=== PATIENT | male | born 1945 | race Caucasian/White ===

== ENCOUNTER 2018-06-30 10:59 | Inpatient (IN) | payer MEDICARE, OTHER ==
[~2018-06-30] VITALS: Ht 167.6 cm; Wt 82.1 kg
[~2018-06-30 10:59] MED LIST: AMLO5TAB9 PO; AMOX500C2 PO; ASPI-605 PO; BENA40TA8 PO; CLAR500T PO; METF-442 PO; OMEP20CA10 PO
--- NOTE | 2018-06-30 11:22 | NUR ---
C/O LLQ ABDOMINAL PAIN + NAUSEA X 3 DAYS. PAIN IS SHARP, PROVOKED BY MOVEMENT, AND 6/10. DENIES CHANGES IN BATHROOM HABITS. NO ACUTE DISTRESS NOTED. AT BEDSIDE. READY FOR EVAL.
[2018-06-30] MEDS ORDERED: ONDANSETRON HCL/PF 4 MG/2 ML VIAL ONE (11:36)
[2018-06-30] MEDS ORDERED: MORPHINE SULFATE INJ 4 MG/ML DISP.SYRIN ONE ×2 (11:36→13:53)
[2018-06-30 11:42] LABS: APPEARANCE,URINE Slightly Cloudy (CLEAR); BILIRUBIN,URINE Negative (NEGATIVE); BLOOD, URINE Negative Ery/uL (NEGATIVE); KETONES,URINE Negative (NEGATIVE); LEUKOCYTE ESTERASE ,URINE Negative (NEGATIVE); NITRITE, URINE Negative (NEGATIVE); PROTEIN,URINE Negative (NEGATIVE); UGLUCOSE 100 MG/DL mg/dL (NEGATIVE)
[2018-06-30 11:50] LABS: BASOPHILS # (AUTO) 0.1 /CMM (0.0-0.2); BASOPHILS % (AUTO) 0.9 % (0.0-2.0); HEMATOCRIT 44 % (39-51); HEMOGLOBIN 14.9 g/dL (13.5-17.5); MEAN CORPUSCULAR HGB CONC 34 g/dl (31.0-36.0); MEAN CORPUSCULAR VOLUME 94 fL (80-96); MONOCYTES # (AUTO) 1.2 /CMM (0.1-1.30); MONOCYTES % (AUTO) 8.5 % (2.0-12.0); NEUTROPHILS % (AUTO) 75.6 % (43.0-81.0); PLATELET COUNT (AUTO) 192 /CMM (150-450); RED BLOOD CELL COUNT(AUTO) 4.64 MIL/uL (4.5-6.0); WHITE BLOOD COUNT (AUTO) 14.6 K/uL (4.3-11.0)
[2018-06-30 11:55] LABS: COLOR,URINE Dark Yellow (YELLOW)
[2018-06-30 11:58] LABS: CALCIUM, SERUM 10.2 mg/dL (8.5-10.1); CARBON DIOXIDE 28 mmol/L (21-32); CHLORIDE 100 mmol/L (98-107); CREATININE 1.2 mg/dL (0.6-1.3); GLUCOSE 185 mg/dL (74-106); POTASSIUM 4.4 mmol/L (3.5-5.1); SODIUM SERUM 138 mmol/L (136-145); UREA NITROGEN, BLOOD 13 mg/dL (7-18)
[2018-06-30] MEDS ORDERED: IV NS 0.9% 1,000 ML BAG IV ONE ×2 (12:00→14:00)
[2018-06-30] MEDS ORDERED: ONDANSETRON HCL/PF 4 MG/2 ML VIAL IVP ONE (12:00)
[2018-06-30] MEDS ORDERED: MORPHINE SULFATE INJ 2 MG/ML DISP.SYRIN IV ONE ×2 (12:00→14:00)
[2018-06-30 12:01] LABS: BACTERIA,URINE None seen /HPF (None Seen); RBC,URINE 0-3 /HPF (0-2); SQUAMOUS EPITHELIAL CELL,UR Few /HPF (None Seen); WBC,URINE 0-1 /HPF (0-3)
[2018-06-30 12:04] LABS: ALANINE AMINOTRANSFERASE 24 U/L (12-78); ALBUMIN 3.7 g/dL (3.4-5.0); ALKALINE PHOSPHATASE 54 U/L (46-116); ASPARTATE AMINOTRANSFERASE 13 U/L (15-37); BILIRUBIN,DIRECT 0.1 mg/dL (0.0-0.2); BILIRUBIN,TOTAL 0.6 mg/dL (0.2-1.0); LIPASE 188 U/L (73-393); TOTAL PROTEIN, SERUM 7.9 g/dL (6.4-8.2)
[2018-06-30] MEDS ORDERED: PIPERACILLIN /TAZOBACTAM 3.375 G in IV D5W 50 ML IV ONE (12:30)
[2018-06-30] MEDS ORDERED: PIPERACILLIN /TAZOBACTAM 3.375 G VIAL IV ONE (12:39)
[2018-06-30] MEDS ORDERED: ALLO100T PO (13:32)
[2018-06-30] MEDS ORDERED: OMEG1CAP PO (13:32)
[2018-06-30] MEDS ORDERED: CALC1WAF4 PO (13:32)
[2018-06-30] MEDS ORDERED: FAMO40TA7 PO (13:32)
[2018-06-30] MEDS ORDERED: HYDR25TA4 PO (13:32)
[2018-06-30] MEDS ORDERED: PRAV40TA3 PO (13:32)
--- NOTE | 2018-06-30 13:32 | NUR ---
ALL IVF INFUSED. PT ELISABETH WELL. RESTING COMFORTABLY WITH AT BEDSIDE. STILL HAS PAIN 5/. NOTIFIED
--- NOTE | 2018-06-30 13:39 | NUR ---
FLU SWAB SENT TO STAT LAB
--- NOTE | 2018-06-30 13:42 | NUR ---
GOT BED 304-1 SEE THOMPSON
--- NOTE | 2018-06-30 14:20 | NUR ---
CALLED [facility] FOR REPORT. PUT ON HOLD. NO ANSWER
--- NOTE | 2018-06-30 14:30 | NUR ---
CALLED [facility] FOR REPORT. PUT ON HOLD. NO ANSWER
--- NOTE | 2018-06-30 15:15 | NUR ---
REPORT GIVEN TO SEE ZAMORA FOR 304-1 TELE
--- NOTE | 2018-06-30 15:30 | NUR ---
PT TRANSFERRED TO FLOOR
--- NOTE | 2018-06-30 15:41 | NUR ---
ms rn received a new admission from er , w/ a dx of pancreatitis, patient is awake,alert,oriented x4,not in any form of distress, respiration even and unlabored, no sob noted, lungs are clear,abdomen soft,positive bowel sounds, denies pain at this time, will monitor patient's condition.
[2018-06-30 16:00] VITALS: BP 140/71
--- NOTE | 2018-06-30 16:30 | NUR ---
ms rn texted david for admission order, waiting for her to reply.
[2018-06-30] MEDS ORDERED: MAGNESIUM HYDROXIDE 30 ML UDC PO PRN (19:30)
[2018-06-30] MEDS ORDERED: ONDANSETRON HCL/PF 4 MG/2 ML VIAL IVP PRN (19:30)
[2018-06-30] MEDS ORDERED: ACETAMINOPHEN 325 MG TABLET PO PRN (19:30)
[2018-06-30] MEDS ORDERED: Z GUARD REMEDY 2 OZ OINT TP PRN (19:30)
[2018-06-30] MEDS ORDERED: ZOLPIDEM TARTRATE 5 MG TABLET PO PRN (19:30)
[2018-06-30] MEDS ORDERED: MAG HYDROX/AL HYDROX/SIMETH 30 ML UDC PO PRN (19:30)
[2018-06-30] MEDS ORDERED: HYDROCODONE/APAP 5/325MG 1 EACH TABLET PO PRN (19:30)
--- NOTE | 2018-06-30 19:30 | NUR ---
RN NOTES RECEIVED PT. AWAKE ON BED, A/OX4. AT BEDSIDE, DENIES PAIN, NO SOB, CALL LIGHT WITHIN REACH, [id number], CONTINUE TO MONITOR
[2018-06-30 20:27] VITALS: BP 117/60
[2018-06-30] MEDS: IV NS 0.9% 1,000 ML IV PRN (21:40)
--- NOTE | 2018-06-30 21:40 | NUR ---
RN NOTES INFORMED ISABEL KENNEY-FANG THAT PT. IS COMPLAINING THAT HE'S HAVING SLIGHT PAIN WHEN HE'S URINATING.. NO ORDER GIVEN JUST OBSERVE THE PATIENT
[2018-07-01 06:32] LABS: BASOPHILS % (AUTO) 0.2 % (0.0-2.0); EOSINOPHILS % (AUTO) 1.4 % (0.0-6.0); HEMATOCRIT 38 % (39-51); HEMOGLOBIN 13.1 g/dL (13.5-17.5); LYMPHOCYTES # (AUTO) 2.2 /CMM (0.8-4.8); LYMPHOCYTES % (AUTO) 18.7 % (20.0-44.0); MEAN CORPUSCULAR HGB CONC 34 g/dl (31.0-36.0); MEAN CORPUSCULAR VOLUME 93 fL (80-96); MONOCYTES # (AUTO) 1.2 /CMM (0.1-1.30); MONOCYTES % (AUTO) 9.8 % (2.0-12.0); NEUTROPHILS # (AUTO) 8.4 /CMM (1.8-8.9); NEUTROPHILS % (AUTO) 69.9 % (43.0-81.0); PLATELET COUNT (AUTO) 170 /CMM (150-450); RED BLOOD CELL COUNT(AUTO) 4.12 MIL/uL (4.5-6.0)
[2018-07-01] MEDS: IV NS 0.9% 1,000 ML IV PRN (06:44)
[2018-07-01 06:45] LABS: CHOLESTEROL 124 mg/dL (<200); HDL CHOLESTEROL 49 mg/dL (40-60); LDL 61 mg/dL (0-99); TRIGLYCERIDES 93 mg/dL (30-150)
--- NOTE | 2018-07-01 06:50 | NUR ---
RN NOTES PATIENT'S WAS ASKING ME IF PATIENT STILL NEEDS THE IV FLUID ..EXPLAINED TO THE PT'S THAT SINCE PATIENT IS ON NPO ..PATIENT NEEDS HYDRATION... PATIENT NOW IS COMPLAINING THAT HE HAS BACK PAIN IS THINKING THAT PATIENT HAS KIDNEY PROBLEM.. ONE NURSE WHO SPEAK INDIAN EXPLAINED TO THEM WHEN THE DOCTOR MAKE ROUNDS AND ALSO WERE GOING TO INFORMED THE DAYSHIFT NURSE TO INFORMED THE DOCTOR WHEN THEY COME.. PT. NEEDS ATTENDED
[2018-07-01 07:00] LABS: CALCIUM, SERUM 8.9 mg/dL (8.5-10.1); CARBON DIOXIDE 24 mmol/L (21-32); CHLORIDE 104 mmol/L (98-107); GLUCOSE 147 mg/dL (74-106); MAGNESIUM 1.6 mg/dL (1.8-2.4); PHOSPHORUS 3.5 mg/dL (2.5-4.9); POTASSIUM 3.9 mmol/L (3.5-5.1); SODIUM SERUM 141 mmol/L (136-145); UREA NITROGEN, BLOOD 9 mg/dL (7-18)
--- NOTE | 2018-07-01 07:45 | NUR ---
MS RN RECEIVED ON BED, AWAKE,ALERT,ORIENTED X4,NOT IN ANY FORM OF DISTRESS, RESPIRATIONS EVEN AND UNLABORED,NO SOB NOTED, LUNGS ARE CLEAR,ABDOMEN SOFT,POSITIVE BOWEL SOUNDS,DENIES PAIN AT THIS TIME, WILL MONITOR PATIENT.
[2018-07-01 08:00] VITALS: BP 124/70
--- NOTE | 2018-07-01 08:04 | NUR ---
MS CUI NPO AT THIS TIME,W/ IV AT LEFT AC.
[2018-07-01] MEDS: Magnesium 1GM/D5W 100ML PREMIX 100 ML IV SCH ×3 (10:49→12:16)
[2018-07-01] MEDS ORDERED: ASPIRIN EC 81 MG TABLET.DR PO SCH (11:00)
[2018-07-01] MEDS ORDERED: HYDROCHLOROTHIAZIDE 25 MG TABLET PO SCH (11:00)
[2018-07-01] MEDS ORDERED: CALCIUM CITRATE(CITRACAL) /VITAMIN D 1 TAB TABLET PO SCH (11:00)
[2018-07-01] MEDS ORDERED: AMLODIPINE BESYLATE 5 MG TABLET PO SCH (11:00)
[2018-07-01] MEDS ORDERED: PANTOPRAZOLE 40 MG TABLET.DR PO SCH (11:00)
[2018-07-01] MEDS ORDERED: BENAZEPRIL HCL 20 MG TABLET PO SCH (11:00)
--- NOTE | 2018-07-01 11:00 | NUR ---
ms rn was seen by david steele/ order to go home if food tolerated .
[2018-07-01 16:00] VITALS: BP 144/78
[2018-07-01] MEDS ORDERED: ALLOPURINOL 100 MG TABLET PO SCH (18:00)
--- NOTE | 2018-07-01 18:20 | NUR ---
ms gonzales food was tolerated texted david for d/c.
[2018-07-01] MEDS ORDERED: LEVO500T75 PO (18:32)
--- NOTE | 2018-07-01 19:10 | NUR ---
ms deputy attorney general instructions given, w/ prescription, went home accompanied by .
[2018-07-01] MEDS ORDERED: ATORVASTATIN 10 MG TABLET PO SCH (22:00)
== END 2018-07-01 19:30 | disposition home or self-care (01) | DRG 871 ==
LOC: ER 11:00 → MED 14:10
PROVIDERS: ADMIT Nurse Practitioner Acute Care; ATTEND Nurse Practitioner Acute Care
DX: A41.9 Sepsis, unspecified organism (principal); K85.90 Acute pancreatitis without necrosis or infection, unspecified; E87.2 Acidosis; M10.9 Gout, unspecified; I10 Essential (primary) hypertension; E11.9 Type 2 diabetes mellitus without complications; N40.0 Benign prostatic hyperplasia without lower urinary tract symptoms; Z85.46 Personal history of malignant neoplasm of prostate; Z79.82 Long term (current) use of aspirin; Z90.79 Acquired absence of other genital organ(s); Z79.899 Other long term (current) drug therapy; K21.9 Gastro-esophageal reflux disease without esophagitis; I25.10 Atherosclerotic heart disease of native coronary artery without angina pectoris
CPT/HCPCS: 36415; 80048-TC; 80061-TC; 80076-TC; 81000-TC; 83605-TC; 83690-TC; 83735-TC; 84100-TC; 84484-TC; 85025-TC; 85730-TC; 87040-TC; 87081-TC; 87086-TC; 87400; G0378; J2270; J2405; J2543; J3475; J7030; J7060

== ENCOUNTER 2019-04-18 07:47 | Emergency (ER) | payer MEDICARE, OTHER ==
[~2019-04-18] VITALS: Ht 170.2 cm; Wt 78.0 kg
[~2019-04-18 07:47] MED LIST changes: +ALLO100T PO; -AMOX500C2 PO; +CALC1WAF4 PO; -CLAR500T PO; +FAMO40TA7 PO; +HYDR25TA4 PO; +LEVO500T75 PO; -METF-442 PO; +OMEG1CAP PO; -OMEP20CA10 PO; +PRAV40TA3 PO
--- NOTE | 2019-04-18 08:02 | NUR ---
PATIENT ARRIVED AT UNIT AMBUL[facility]ORY, A/O X 4. PATIENT ACCOMPANIED BY . WITH CC OF LEFT LEG PAIN X 3-4 DAYS. REPORTED THAT PATIENT TAKES IBUPROFEN AT HOME BUT WITH NO RELIEF. PATIENT ON BED, CONNECTED TO MONITOR. WILL CONTINUE TO MONITOR ACCORDINGLY
--- NOTE | 2019-04-18 08:07 | NUR ---
TECH AT BEDSIDE FOR DUPLEX SCAN.
--- NOTE | 2019-04-18 08:27 | NUR ---
DOMINGO WRAP APPLIED TO AFFECTED KNEE.
--- NOTE | 2019-04-18 08:31 | NUR ---
Patient discharged to home in stable condition. Written and verbal after care instructions given. Patient verbalizes understanding of instruction.
[2019-04-18 08:32] VITALS: BP 132/70
== END 2019-04-18 08:33 | disposition home or self-care (01) ==
LOC: ER 07:57
DX: M25.562 Pain in left knee (principal); I10 Essential (primary) hypertension; N40.0 Benign prostatic hyperplasia without lower urinary tract symptoms; E11.9 Type 2 diabetes mellitus without complications; Z85.46 Personal history of malignant neoplasm of prostate; Z98.890 Other specified postprocedural states; Z79.899 Other long term (current) drug therapy; Z79.82 Long term (current) use of aspirin
CPT/HCPCS: 93971-TC

== ENCOUNTER 2020-02-23 13:03 | Emergency (ER) | payer MEDICARE, OTHER ==
[~2020-02-23] VITALS: Ht 167.6 cm; Wt 77.1 kg
[~2020-02-23 13:03] MED LIST changes: +LEVO500T23 PO; -LEVO500T75 PO
--- NOTE | 2020-02-23 13:30 | NUR ---
ON AND OFF DIARRHEA X 10 DAYS. 3 EPISODES TODAY. PATIENT A/OX4, BREATHING EVEN AND UNLABORED, NO SOB NOTED, NEEDS ATTENDED, KEPT COMFORTABLE.
[2020-02-23] MEDS ORDERED: IV NS 0.9% 1,000 ML BAG IV ONE (14:00)
[2020-02-23 14:04] LABS: BASOPHILS # (AUTO) 0.1 /CMM (0.0-0.2); BASOPHILS % (AUTO) 0.7 % (0.0-2.0); EOSINOPHILS % (AUTO) 1.3 % (0.0-6.0); HEMATOCRIT 41 % (39-51); HEMOGLOBIN 13.9 g/dL (13.5-17.5); LYMPHOCYTES # (AUTO) 1.8 /CMM (0.8-4.8); LYMPHOCYTES % (AUTO) 20.1 % (20.0-44.0); MEAN CORPUSCULAR HGB CONC 34 g/dl (31.0-36.0); MEAN CORPUSCULAR VOLUME 95 fL (80-96); MONOCYTES # (AUTO) 0.7 /CMM (0.1-1.30); MONOCYTES % (AUTO) 8.3 % (2.0-12.0); NEUTROPHILS # (AUTO) 6.2 /CMM (1.8-8.9); NEUTROPHILS % (AUTO) 69.6 % (43.0-81.0); PLATELET COUNT (AUTO) 239 /CMM (150-450); WHITE BLOOD COUNT (AUTO) 8.9 K/uL (4.3-11.0)
[2020-02-23 14:17] LABS: CALCIUM, SERUM 9.5 mg/dL (8.5-10.1); CARBON DIOXIDE 25 mmol/L (21-32); CHLORIDE 100 mmol/L (98-107); CREATININE 1.5 mg/dL (0.6-1.3); GLUCOSE 122 mg/dL (74-106); POTASSIUM 4.7 mmol/L (3.5-5.1); SODIUM SERUM 137 mmol/L (136-145); UREA NITROGEN, BLOOD 23 mg/dL (7-18)
[2020-02-23 14:23] LABS: ALANINE AMINOTRANSFERASE 30 U/L (12-78); ALKALINE PHOSPHATASE 51 U/L (46-116); ASPARTATE AMINOTRANSFERASE 18 U/L (15-37); BILIRUBIN,DIRECT 0.1 mg/dL (0.0-0.2); BILIRUBIN,TOTAL 0.4 mg/dL (0.2-1.0); LIPASE 486 U/L (73-393); TOTAL PROTEIN, SERUM 7.6 g/dL (6.4-8.2)
[2020-02-23] MEDS ORDERED: AMLO10TA7 PO (14:27)
[2020-02-23] MEDS ORDERED: MAGN400T26 PO (14:27)
[2020-02-23] MEDS ORDERED: ROSU20TA32 PO (14:27)
[2020-02-23] MEDS ORDERED: METF-442 PO (14:27)
--- NOTE | 2020-02-23 14:55 | NUR ---
UNABLE TO GIVE URINE AND STOOL AT THIS TIME.
--- NOTE | 2020-02-23 15:15 | NUR ---
PATIENT A/OX4, BREATHING EVEN AND UNLABORED, NO SOB NOTED, NEEDS ATTENDED, KEPT COMFORTABLE. No urine or stool provided by the patient. IV removed. Catheter intact and site benign. Pressure and 4x4 applied to site. No bleeding noted. Patient discharged to home in stable condition. Written and verbal after care instructions given. Patient verbalizes understanding of instruction.
[2020-02-23 15:17] VITALS: BP 113/65
== END 2020-02-23 15:18 | disposition home or self-care (01) ==
LOC: ER 13:07
DX: K52.9 Noninfective gastroenteritis and colitis, unspecified (principal); I10 Essential (primary) hypertension; E11.9 Type 2 diabetes mellitus without complications; Z85.46 Personal history of malignant neoplasm of prostate; Z90.89 Acquired absence of other organs; Z79.82 Long term (current) use of aspirin; Z79.84 Long term (current) use of oral hypoglycemic drugs; Z79.899 Other long term (current) drug therapy
CPT/HCPCS: 36415; 80048; 80076; 83690; 85025; 96360; 99283; J7030